=== PATIENT | male | born 1955 | race Caucasian/White ===

== ENCOUNTER 2025-02-15 06:31 | Inpatient (IN) | payer MEDICARE, MEDICAID ==
[~2025-02-15] VITALS: Ht 177.8 cm; Wt 73.1 kg
[2025-02-15] VITALS (45 sets, daily range): BP systolic 107–133; BP diastolic 54–91; PULSE 55–94; RESP 12–25; TEMP 36.1–36.9; O2SAT 81–99
[~2025-02-15 06:31] MED LIST: ASPI-1497 PO; QUET50TA PO; ROSU40TA PO
[2025-02-15] MEDS ORDERED: POLYMYXIN B SULFATE 500000 UNITS/VIAL ONE (06:48)
[2025-02-15] MEDS ORDERED: THROMBIN (BOVINE) 5000 UNITS/VIAL TOP ONE (06:49)
[2025-02-15] MEDS ORDERED: LIDOCAINE HCL 1% 10 MG/ML 10ML VIAL ONE (06:49)
[2025-02-15] MEDS ORDERED: BACITRACIN 14GM TUBE TOP ONE (06:49)
[2025-02-15] MEDS ORDERED: BUPIVACAINE HCL/PF 0.5% (5MG/ML) 10ML ONE (06:49)
[2025-02-15] MEDS ORDERED: HEPARIN SODIUM 1,000 UNIT/1ML VIAL IV ONE (06:53)
[2025-02-15] MEDS ORDERED: NICARDIPINE 40MG/200ML PREMIX 200 ML IV ONE (07:33)
[2025-02-15] MEDS ORDERED: PHENYLEPHRINE 50MG/250ML PMX 250 ML IV ONE (07:33)
[2025-02-15 08:03] LABS: BASOPHILS % 0.9 % (0.0-2.0); EOSINOPHILS % 4.1 % (0.0-5.0); HEMATOCRIT. 41.3 % (42.0-52.0); HEMOGLOBIN. 14.1 g/dL (14.0-18.0); LYMPHOCYTES % 17.2 % (20.0-50.0); MEAN CORPUSCULAR HEMOGLOBIN 34.1 pg (28.0-32.0); MEAN CORPUSCULAR HGB CONC 34.2 g/dL (31.0-37.0); MEAN CORPUSCULAR VOLUME 99.7 fL (80.0-94.0); MEAN PLATELET VOLUME 7.8 fl (7.4-10.4); MONOCYTES % 4.6 % (2.0-8.0); NEUTROPHILS % 73.2 % (40.0-76.0); PLATELET 94 x1000/uL (130-400); RED BLOOD CELL COUNT 4.14 mill/uL (4.7-6.1); RED CELL DISTRIBUTION WIDTH 14.3 % (11.6-14.6); WHITE BLOOD COUNT 3.8 x1000/uL (4.5-11.0)
[2025-02-15 08:13] LABS: CHLORIDE 108 mEq/L (98-107); POTASSIUM 4.3 mEq/L (3.5-5.1); SODIUM 142 mEq/L (136-145)
[2025-02-15 08:14] LABS: CARBON DIOXIDE 27 mEq/L (21-32)
[2025-02-15 08:19] LABS: GLUCOSE 99 mg/dL (70-105); UREA NITROGEN BLOOD 17 mg/dL (9-23)
[2025-02-15 08:26] LABS: INR 1.1; PARTIAL THROMBOPLASTIN TIME 27.8 sec (23.4-31.0); PROTHROMBIN TIME 11.4 sec (9.6-11.0)
[2025-02-15] MEDS ORDERED: LACTATED RINGERS 1,000 ML IV SCH (08:30)
[2025-02-15] MEDS ORDERED: NICARDIPINE 40MG/200ML PREMIX 200 ML IV PRN (09:44)
[2025-02-15] MEDS ORDERED: NALOXONE HCL 0.4MG/ML VIAL IV PRN (10:00)
[2025-02-15] MEDS ORDERED: DEXT5TAB15 PO (10:00)
[2025-02-15] MEDS ORDERED: SUGAMMADEX SODIUM 200MG/2ML VIAL IV ONE (10:59)
[2025-02-15] MEDS: MORPHINE SULFATE 4 MG/ML INJ (FOR IV/IM USE) IV PRN (12:42)
[2025-02-15] MEDS ORDERED: ACETAMINOPHEN 325MG TABLET PO PRN (14:15)
[2025-02-15] MEDS ORDERED: MORPHINE SULFATE 2 MG/ML INJ (NOT FOR IM USE) IV PRN (14:15)
[2025-02-15] MEDS ORDERED: HYDRALAZINE 20MG/ML VIAL IV PRN (14:15)
[2025-02-15] MEDS ORDERED: ZOLPIDEM TARTRATE 5MG TABLET PO PRN (14:15)
[2025-02-15] MEDS ORDERED: ONDANSETRON HCL 4MG/2ML INJ IV PRN (14:15)
[2025-02-15] MEDS ORDERED: CLONIDINE 0.1MG TABLET PO PRN (14:15)
[2025-02-15] MEDS: DEXT 5%/0.45% NACL KCL 20MEQ/L 1,000 ML IV SCH (16:18)
[2025-02-15] MEDS: HYDROCODONE/ACETAMINOPHEN 5/325MG TABLET PO PRN (17:18)
[2025-02-15] MEDS ORDERED: LORAZEPAM 0.5MG TABLET PO PRN (19:45)
[2025-02-15] MEDS: QUETIAPINE FUMARATE 50MG TABLET PO SCH (21:07)
[2025-02-15] MEDS: ATORVASTATIN CALCIUM 40MG TABLET PO SCH (21:07)
[2025-02-16] VITALS (60 sets, daily range): BP systolic 100–148; BP diastolic 64–131; PULSE 53–84; RESP 12–26; TEMP 36.7–37.4; O2SAT 81–100
[2025-02-16 06:22] LABS: BASOPHILS % 0.2 % (0.0-2.0); EOSINOPHILS % 0.5 % (0.0-5.0); HEMATOCRIT. 38.4 % (42.0-52.0); HEMOGLOBIN. 13.1 g/dL (14.0-18.0); LYMPHOCYTES % 9.2 % (20.0-50.0); MEAN CORPUSCULAR HEMOGLOBIN 33.8 pg (28.0-32.0); MEAN CORPUSCULAR HGB CONC 34.1 g/dL (31.0-37.0); MEAN PLATELET VOLUME 8.4 fl (7.4-10.4); MONOCYTES % 4.7 % (2.0-8.0); NEUTROPHILS % 85.4 % (40.0-76.0); PLATELET 80 x1000/uL (130-400); RED BLOOD CELL COUNT 3.88 mill/uL (4.7-6.1); RED CELL DISTRIBUTION WIDTH 13.8 % (11.6-14.6); WHITE BLOOD COUNT 5.7 x1000/uL (4.5-11.0)
[2025-02-16 06:35] LABS: CHLORIDE 107 mEq/L (98-107); POTASSIUM 4.6 mEq/L (3.5-5.1); SODIUM 138 mEq/L (136-145)
[2025-02-16 06:36] LABS: CARBON DIOXIDE 25 mEq/L (21-32)
[2025-02-16 06:37] LABS: CALCIUM 8.6 mg/dL (8.7-10.4)
[2025-02-16 06:41] LABS: CREATININE 0.9 mg/dL (0.6-1.3); GLUCOSE 126 mg/dL (70-105)
[2025-02-16 06:42] LABS: UREA NITROGEN BLOOD 15 mg/dL (9-23)
[2025-02-16] MEDS: PANTOPRAZOLE SODIUM 40 MG/VIAL IV SCH (09:26)
[2025-02-16] MEDS: ENOXAPARIN 40MG/0.4ML SYR SUBCUT SCH (09:26)
[2025-02-16] MEDS: ASPIRIN 81MG EC TABLET PO SCH (09:27)
[2025-02-16] MEDS ORDERED: FENTANYL 2500MCG/250ML PMX 250 ML IV ONE (15:45)
[2025-02-16] MEDS ORDERED: HYDR-4001 MT (16:29)
== END 2025-02-16 17:00 | disposition home or self-care (01) | DRG 39 ==
LOC: OR 06:31 → CVICU 06:32
PROVIDERS: ADMIT Surgery Vascular Surgery; ATTEND Internal Medicine
PROC: 03CK0ZZ Extirpation of Matter from Right Internal Carotid Artery, Open Approach (ICD-10-PCS; principal; 2025-02-15)
DX: I65.21 Occlusion and stenosis of right carotid artery (principal); I10 Essential (primary) hypertension; F41.9 Anxiety disorder, unspecified; F32.A Depression, unspecified; E78.5 Hyperlipidemia, unspecified; Z79.899 Other long term (current) drug therapy
CPT/HCPCS: 36415; 80048; 82962; 85025; 88304; 88311; 93005; 93970; A4606; J0665; J1644; J1650; J2003; J2270; J2371; J2470; J3490; J7030; J7050